=== PATIENT | female | born 1950 | race Caucasian/White ===

== ENCOUNTER 2017-06-06 20:35 | Emergency (ER) | payer MEDICARE, OTHER ==
--- NOTE | 2017-06-06 21:05 | ED Physician Chart ---
ED Chief Complaint/HPI - Patient Information Date Seen:: 06/06/17 Time Seen:: 21:04 Chief Complaint:: Dislodged G-tube History of Present Illness:: 67 yo female was brought from [facility] to ER for G-tube replacement. Her G-tube was found to be dislodged for unknown duration today. However, a Ceballos catheter was able to be inserted into the stoma at the [facility]. Allergies:: Allergies Allergy/AdvReac Type Severity Reaction Status Date / Time Penicillins [PCN] Allergy Verified 06/06/17 20:48 Vitals:: Vital Signs - 8 hr 06/06/17 20:35 Temp 98.0 F HR 84 RR 17 BP 133/72 O2 Sat % 95 ED Review of Systems - Review of Systems General/Constitutional: No fever Skin: Skin lesions Head: No headache Eyes: No pain ENT: No nasal drainage Neck: No neck pain Cardio Vascular: No chest pain Pulmonary: No SOB GI: No nausea, No vomiting Musculoskeletal: No bone or joint pain Psychiatric: Prior psych history Neurological: No headache ED Past Medical History - Past Medical History Past Medical History: HTN, Dyslipidemia, Thyroid disorder, Dementia, Other ( Gastritis, Diaphragmatic hernia, Dermatitis, Dysphagia, Convulsion) Social History: Non Smoker, No Alcohol, No Drug Use Psychiatricy History: Depression, Dementia Family Medical History - Family Member Mother History Unknown: Yes ED Physical Exam - Physical Examination General/Constitutional: Awake Other Gen/Cons comments:: confused Eyes: PERRL Skin: No ecchymosis ENMT: Nasal exam nl Neck: No nuchal rigidity Respiratory: No Wheeze/Rhonchi/Rales Cardio Vascular: RRR, No murmur, gallop, rubs, NL S1 S2 Other GI comments:: Ceballos catheter in stoma without bleeding or purulent drainage Extremities: No edema Other Neuro/Psych comments:: Oriented to self, followed command ED Labs/Radiology/EKG Results - Radiology Results Results: Gastrografin study showed G-tube in stomach, with contrast filled stomach and duodenum ED Assessment - Assessment General Assessment: Dislodged G-tube Assessment/Comments:: Replaced G-tube Gastrografin study showed the G-tube within stomach with contrast filled stomach and duodenum D/c to SNF - Procedures Procedures:: Clean the stoma and surrounding skin with betadine. After aspirating around 10cc balloon fluid of the Ceballos catheter, the Ceballos was gradually removed. Subsequently, a 20 F G-tube was inserted through the stoma without resistance. 15cc NS was injected into the balloon of G-tube. The patient tolerated the procedure without complication. ED Septic Shock - . Is Septic Shock (SBP<90, OR Lactate>4 mmol\L) present?: No - <6hrs of presentation: Vital Signs: Vital Signs - 8 hr 06/06/17 20:35 Temp 98.0 F HR 84 RR 17 BP 133/72 O2 Sat % 95 ED Reassessment (Disposition) - Reassessment Reassessment Condition:: Improved - Patient Disposition Discharge/Transfer:: [employer] [facility] - SNF ED Discharge Plan - Patient Disposition Admit/Discharge/Transfer: Discharge/Transfered to SNF Instructions: Gastric Tube Replacement Additional Instructions: Follow up with primary doctor
[2017-06-06] MEDS ORDERED: Diatrizoate Meglumine/Diatri 30 mL Sol ONE (21:07)
--- NOTE | 2017-06-07 07:46 | Diagnostic Imaging Report ---
Upper GI limited HISTORY: G-tube placement COMPARISON: None FINDINGS: Copious stool is noted with generalized gas-filled loops of bowel. Percutaneous gastric feeding tube is noted. Left upper quadrant calcifications are seen medially, nonspecific. The second image demonstrates contrast opacification of the stomach and small bowel loops. IMPRESSION: Intraluminal confirmation of patient's percutaneous gastric feeding tube. Copious stool with probable ileus.
== END 2017-06-06 22:13 ==
LOC: ER 20:35
DX: Z43.1 Encounter for attention to gastrostomy (principal); I10 Essential (primary) hypertension; E78.5 Hyperlipidemia, unspecified; E07.9 Disorder of thyroid, unspecified; F32.9 Major depressive disorder, single episode, unspecified; Z88.0 Allergy status to penicillin
CPT/HCPCS: 74000-TC; Z7502; Z7610